=== PATIENT | female | born 1995 | race Caucasian/White ===

== ENCOUNTER 2017-06-09 17:07 | Emergency (ER) | payer MEDICAID ==
[~2017-06-09] VITALS: Ht 160 cm; Wt 60.0 kg
[2017-06-09 17:09] VITALS: BP 114/74; PULSE 98; RESP 18; TEMP 100.3; O2SAT 98
--- NOTE | 2017-06-09 17:37 | PD ---
Physical Exam Date Seen by Provider: Jun 09, 2017 Time Seen by Provider: 17:35 Narrative 21 yo female here for sore throat x 2 days. Fevers, chills and sweats. hurt the eat but able to do so. No chest pain. No cough. Mother been sick recently but not as bad. Taking OTC meds with no issues. Takes tylenol. Vitals are stable in triage. Awaiting Bed placement. Data Data Last Documented VS Vital Signs Date Time Temp Pulse Resp B/P Pulse Ox O2 Delivery O2 Flow Rate FiO2 06/09/17 17:09 100.3 98 18 114/74 98 MDM Medical Record Reviewed: Yes Supervised Visit with LAMIN: No Efe Dias Jun 09, 2017 17:37
--- NOTE | 2017-06-09 18:29 | PD ---
HPI Chief Complaint: ENT Complaint Time Seen by Provider: 18:24 Travel History International Travel<30 days: No Contact w/Intl Traveler<30days: No Traveled to known affect area: No History of Present Illness HPI 21-year-old female presents the emergency Department with 2 day history of worsening sore throat, tonsillitis, exudate, and fever. Patient has decreased appetite but no nausea or vomiting. She denies ear pain, headache, or difficulty breathing. 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 Patient denies abdominal pain or diarrhea or urinary symptoms. Her pain is in an 8 out of 10. Patient has been taking Tylenol with some relief. She has no known drug allergies. PFSH Past Medical History Medical History: Denies Significant Hx Diminished Hearing: No Immunizations Current: Yes ?: Not LMP: 05/30/17 Past Surgical History Surgical History: No Previous Surgery Social History Alcohol Use: Yes (OCC) Tobacco Use: No Substance Use: No Allergies-Medications (Allergen,Severity, Reaction): Coded Allergies: No Known Allergies (Unverified , 06/09/17) Reported Meds & Prescriptions Reported Meds & Active Scripts Active Ibuprofen 600 Mg Tab 600 Mg PO Q6H PRN Non-Aspirin Pain Relief ES (Acetaminophen) 500 Mg Tab 500 Mg PO Q6HR PRN Review of Systems Except as stated in HPI: all other systems reviewed are Neg General / Constitutional: Positive: Fever, Chills Eyes: No: Visual changes HENT: Positive: Sore Throat, No: Headaches, Rhinitis, Rhinorrhea, Congestion, Nosebleed, Neck Stiffness, Neck Pain, Dental Difficulties, Ear Discharge, Earache Cardiovascular: No: Chest Pain or Discomfort Respiratory: No: Shortness of Breath Gastrointestinal: No: Abdominal Pain Genitourinary: No: Dysuria Musculoskeletal: Positive: Myalgias, No: Pain Skin: No Rash Neurologic: No: Weakness Psychiatric: No: Depression Endocrine: No: Polydipsia Hematologic/Lymphatic: No: Easy Bruising Physical Exam Narrative GENERAL: Patient appears in mild to moderate distress. SKIN: Warm and dry. Normal color. Normal turgor. No rash. HEAD: Atraumatic. Normocephalic. EYES: Pupils equal and round. No scleral icterus. No injection or drainage. ENT: No nasal bleeding or discharge. Mucous membranes pink and moist. TMs are clear bilaterally. No sinus tenderness. Pharynx shows bilateral moderate tonsillitis with yellowish exudate. The tonsils have a bluish tint to them. Uvula is midline. Pharynx is clear. Airway is patent. NECK: Trachea midline. Supple with mild to moderate anterior lymph adenopathy. CARDIOVASCULAR: Regular rate and rhythm. No murmurs gallops or rubs. RESPIRATORY: No accessory muscle use. Clear to auscultation. Breath sounds equal bilaterally. GASTROINTESTINAL: Abdomen soft, non-tender, nondistended. Hepatic margins not palpable. Patient has a palpable tender swelling on the left. No CVA tenderness. MUSCULOSKELETAL: Extremities without clubbing, cyanosis, or edema. No obvious deformities. NEUROLOGICAL: Awake and alert. No obvious cranial nerve deficits. Motor grossly within normal limits. Five out of 5 muscle strength in the arms and legs. Normal speech. PSYCHIATRIC: Appropriate mood and affect; insight and judgment normal. Data Data Last Documented VS Vital Signs Date Time Temp Pulse Resp B/P Pulse Ox O2 Delivery O2 Flow Rate FiO2 06/09/17 17:09 100.3 98 18 114/74 98 Orders Group A Rapid Strep Screen (06/09/17 17:58) Ibuprofen (Motrin) (06/09/17 18:30) Acetaminophen (Tylenol) (06/09/17 18:30) Strep Culture (Group A) (06/09/17 18:01) MDM Medical Decision Making Medical Screen Exam Complete: Yes Emergency Medical Condition: Yes Differential Diagnosis Tonsillitis. Strep pharyngitis. Mononucleosis. Narrative Course Patient is medically stable at time of exam. Patient is given Tylenol 1000 mg by mouth. Patient is given 600 mg ibuprofen by mouth Rapid strep test sent to the lab to rule out strep pharyngitis. Rapid strep is negative. Patient is felt to have mononucleosis. Further testing is felt to be beneficial. Patient is to treat symptomatically with ibuprofen and Tylenol as discussed. Work note is given. She should return until fever free for 24 hours. Patient should follow-up with her primary care physician or return to emergency Department with worsening symptoms if necessary. Diagnosis Primary Impression: Acute tonsillitis due to infectious mononucleosis Referrals: Primary Care Physician Patient Instructions: General Instructions, Mononucleosis (ED) Departure Forms: Work Release Enter return to work date: Jun 09, 2017 Special Instructions: Patient should not return to work until fever free for greater than 24 hours. Additional Instructions: Rapid strep is negative. Patient is felt to have mononucleosis. Further testing is felt to be beneficial. Patient is to treat symptomatically with ibuprofen and Tylenol as discussed. Work note is given. She should return until fever free for 24 hours. Patient should follow-up with her primary care physician or return to emergency Department with worsening symptoms if necessary. Med/Other Pt SpecificInfo: Prescription(s) given Scripts Ibuprofen 600 Mg [id number] Mg PO Q6H PRN (Pain/Inflammation) #40 TAB Prov:Tess Jose MD 06/09/17 Acetaminophen (Non-Aspirin Pain Relief ES)500 Mg [id number] Mg PO Q6HR PRN (PAIN) # 60 TAB Prov:Tess Jose MD 06/09/17 Disposition: 01 DISCHARGE HOME Condition: Stable Paxton Noe Jun 09, 2017 18:29
[2017-06-09] MEDS ORDERED: ACETAMINOPHEN 500 MG CPLT PO ONE (18:30)
[2017-06-09] MEDS ORDERED: IBUPROFEN 600 MG TAB PO ONE (18:30)
[2017-06-09] MEDS ORDERED: NON-500T13 PO (18:36)
[2017-06-09] MEDS ORDERED: IBUP-232 PO (18:36)
== END 2017-06-09 18:53 | disposition home or self-care (01) ==
LOC: NEPK 17:07
DX: J03.80 Acute tonsillitis due to other specified organisms (principal); B27.90 Infectious mononucleosis, unspecified without complication
CPT/HCPCS: 87081; 87880; 99283

== ENCOUNTER 2017-06-16 16:50 | Emergency (ER) | payer MEDICAID ==
[~2017-06-16] VITALS: Ht 160 cm; Wt 65.0 kg
[~2017-06-16 16:50] MED LIST: IBUP-232 PO; NON-500T13 PO
[2017-06-16 16:51] VITALS: BP 105/57; PULSE 68; RESP 16; TEMP 99.1; O2SAT 99
--- NOTE | 2017-06-16 17:43 | PD ---
HPI . here wanting to be retested for mono and wants a note for work Chief Complaint: Medical Clearance Time Seen by Provider: 17:42 Travel History International Travel<30 days: No Contact w/Intl Traveler<30days: No Traveled to known affect area: No History of Present Illness HPI 21-year-old female here requesting testing for mononucleosis as she was diagnosed with this last week. She also says that she needs a note to return to work. Never followed up with her primary care provider. She has no complaints and is better. PFSH Past Medical History Diminished Hearing: No Immunizations Current: Yes ?: Unknown LMP: 05/30/17 Social History Alcohol Use: Yes (OCC) Tobacco Use: No Substance Use: No Allergies-Medications (Allergen,Severity, Reaction): Coded Allergies: No Known Allergies (Unverified , 06/09/17) Reported Meds & Prescriptions Reported Meds & Active Scripts Active Ibuprofen 600 Mg Tab 600 Mg PO Q6H PRN Non-Aspirin Pain Relief ES (Acetaminophen) 500 Mg Tab 500 Mg PO Q6HR PRN Review of Systems General / Constitutional: No: Fever Eyes: No: Visual changes HENT: No: Headaches Cardiovascular: No: Chest Pain or Discomfort Respiratory: No: Shortness of Breath Gastrointestinal: No: Abdominal Pain Genitourinary: No: Dysuria Musculoskeletal: No: Pain Skin: No Rash Neurologic: No: Weakness Psychiatric: No: Depression Endocrine: No: Polydipsia Hematologic/Lymphatic: No: Easy Bruising Physical Exam Narrative GENERAL: AAO x 3, no acute distress, Well-nourished, well-developed patient. SKIN: Warm and dry. No visible rashes or bruising. HEAD: Normocephalic and atraumatic. EYES: No scleral icterus. No injection or drainage. ENT: No nasal drainage noted. Mucous membranes pink. Airway patent. NECK: Supple, trachea midline. No JVD. CARDIOVASCULAR: Regular rate and rhythm without murmurs, gallops, or rubs. RESPIRATORY: Breath sounds equal bilaterally. No accessory muscle use. No rhonchi or rales. GASTROINTESTINAL: visual inspection normal EXTREMITIES: No cyanosis or edema. BACK: No obvious deformity. NEURO: CN II-12 intact, PSYCH: AAO x 3, normal affect. Data Data Last Documented VS Vital Signs Date Time Temp Pulse Resp B/P Pulse Ox O2 Delivery O2 Flow Rate FiO2 7/18/17 16:51 99.1 68 16 105/57 99 Room Air MDM Medical Decision Making Medical Screen Exam Complete: Yes Emergency Medical Condition: No Medical Record Reviewed: Yes Differential Diagnosis medical clearance, Narrative Course A medical screening exam was performed: At the time of evaluation the presenting medical condition was determined not to be of an emergent nature. The patient was given the option of receiving additional care, but declined. Patient was given options for additional community resources from which to obtain care. The Patient Has Been advised to seek medical attention for their presenting complaint. The patient has been advised to return to the ER at any time if an emergent condition develops. Advised patient follow up with her primary care provider as her paperwork instructed her to do. Diagnosis Primary Impression: Encounter for medical screening examination Condition: Stable Beatrice Elaine Jun 16, 2017 17:43
== END 2017-06-16 18:20 | disposition left against medical advice (07) ==
LOC: NEPK 16:50
DX: Z01.89 Encounter for other specified special examinations (principal); Z79.899 Other long term (current) drug therapy
CPT/HCPCS: 99281